=== PATIENT | female | born 1940 | race Caucasian/White ===

== ENCOUNTER 2020-11-18 05:10 | Inpatient (IN) ==
[2020-11-18] MEDS ORDERED: HYDROmorphone 2 MG/1 ML VIAL IV STA (05:28)
[2020-11-18] MEDS ORDERED: ONDANSETRON 4 MG/2 ML VIAL IV STA (05:28)
[2020-11-18 05:47] LABS: Basophils # 0.1 10*3/uL (0.0-0.2); Basophils % 0.3 % (0.0-0.8); Eosinophils # 0.4 10*3/uL (0.0-0.87); Eosinophils % 2.3 % (0.00-10.9); Hematocrit 33.2 VOL% (35.7-47.0); Immature Granulocytes % 0.8 %; Immature Granulocytes Absolute 0.15 #; Lymphocytes # 2.1 10*3/uL (1.4-4.0); Lymphocytes % 11.6 % (21.3-54.2); Mean Corpuscular HGB Conc 33.1 GM/DL (32-36); Mean Corpuscular Volume 89.5 FL (87-102); Mean Platelet Volume 11.7 FL (9.6-12.0); Monocytes % 4.8 % (1.7-12.7); Neutrophils % 80.2 % (38.7-73.9); Platelet Count 208 T/CUMM (130-400); Red Blood Count 3.71 MC/CUMM (3.8-5.5); Red Cell Distribution Width 14.6 % (9.3-17.3); White Blood Count 17.7 T/CUMM (4-12)
[2020-11-18 06:04] LABS: Albumin 3.5 G/DL (3.4-5.0); Bilirubin,Total 0.5 MG/DL (0.20-1.00); Calcium 8.9 MG/DL (8.5-10.1); Osmolality,Calculated 290.1 MOS/KG (273-304); Potassium 4.1 MMOL/L (3.5-5.1); Total Protein 6.2 G/DL (6.4-8.2)
[2020-11-18 06:29] LABS: Bacteria,Urine Occasional /HPF (Few); Bilirubin,Urine Negative (Negative); Blood, Urine Negative (Negative); Glucose,Urine (UA) Negative (Negative); Ketones,Urine Negative (Negative); Mucus,Urine Occasional /LPF (Occasional); Nitrite,Urine Negative (Negative); Protein,Urine Negative; RBC,Urine 2 /HPF (0-4); Squamous Epithelial Cell,Urine Occasional /HPF (0-10); Urine Appearance CLEAR (Clear); Urine Color Yellow (Yellow); Urine Specific Gravity 1.012 (1.001-1.035); Urine Urobilinogen < 2.0 EU/DL (0.2-1.0)
[2020-11-18] MEDS ORDERED: GLUCAGON 1 MG VIAL IM PRN (07:38)
[2020-11-18] MEDS ORDERED: ACETAMINOPHEN 325 MG TABLET PO PRN (07:38)
[2020-11-18] MEDS ORDERED: DEXTROSE 50% 25 GM/50 ML VIAL IV PRN (07:38)
[2020-11-18] MEDS ORDERED: hydrALAZINE 20 MG/1 ML VIAL IV PRN (07:38)
[2020-11-18 07:47] LABS: PT Patient Result 10.8 SECS (10.5-12.0)
[2020-11-18] MEDS ORDERED: SIMVASTATIN 20 MG TABLET PO SCH (09:00)
[2020-11-18] MEDS ORDERED: LEVOTHYROXINE 50 MCG TABLET PO SCH (09:00)
[2020-11-18] MEDS: DOCUSATE SODIUM 100 MG CAPSULE PO SCH ×2 (11:28→21:09)
[2020-11-18] MEDS: METOPROLOL TARTRATE 50 MG TABLET PO SCH ×2 (11:28→21:09)
[2020-11-18] MEDS: GABAPENTIN 100 MG CAPSULE PO SCH ×2 (11:28→21:09)
[2020-11-18] MEDS: allopurinoL 300 MG TABLET PO SCH (11:29)
[2020-11-18] MEDS: PANTOPRAZOLE 40 MG TABLET PO SCH (11:29)
[2020-11-18] MEDS: SODIUM CHLORIDE 0.9% 1,000 ML IV SCH (14:34)
[2020-11-18] MEDS: LOSARTAN/HCTZ 50-12.5 MG TABLET PO SCH (14:34)
[2020-11-18] MEDS: MORPHINE 2 MG/1 ML SYRINGE IV PRN (16:27)
[2020-11-19 05:50] LABS: Basophils % 0.2 % (0.0-0.8); Eosinophils # 0.3 10*3/uL (0.0-0.87); Eosinophils % 3.6 % (0.00-10.9); Hematocrit 30.8 VOL% (35.7-47.0); Hemoglobin 9.9 GM/DL (12.0-16.0); Immature Granulocytes % 0.4 %; Immature Granulocytes Absolute 0.04 #; Lymphocytes # 2.3 10*3/uL (1.4-4.0); Lymphocytes % 24.4 % (21.3-54.2); Mean Corpuscular HGB Conc 32.1 GM/DL (32-36); Mean Corpuscular Volume 91.9 FL (87-102); Mean Platelet Volume 12.6 FL (9.6-12.0); Monocytes % 8.6 % (1.7-12.7); Neutrophils % 62.8 % (38.7-73.9); Platelet Count 180 T/CUMM (130-400); Red Blood Count 3.35 MC/CUMM (3.8-5.5); Red Cell Distribution Width 14.6 % (9.3-17.3); White Blood Count 9.5 T/CUMM (4-12)
[2020-11-19] MEDS: LEVOTHYROXINE 50 MCG TABLET PO SCH (06:01)
[2020-11-19] MEDS: SODIUM CHLORIDE 0.9% 1,000 ML IV SCH ×3 (06:09→17:00)
[2020-11-19 06:30] LABS: Calcium 8.8 MG/DL (8.5-10.1); Osmolality,Calculated 286.3 MOS/KG (273-304); Potassium 4.3 MMOL/L (3.5-5.1); Thyroid Stimulating Hormone 3.24 uIU/ml (0.358-3.74)
[2020-11-19] MEDS ORDERED: fentaNYL 100 MCG/2 ML VIAL ONE (07:46)
[2020-11-19] MEDS ORDERED: ONDANSETRON 4 MG/2 ML VIAL ONE ×2 (07:55→08:19)
[2020-11-19] MEDS ORDERED: propofoL 200 MG/20 ML VIAL IV ONE (07:56)
[2020-11-19] MEDS ORDERED: LIDOCAINE 2% 5 ML VIAL ONE (07:56)
[2020-11-19] MEDS ORDERED: SEVOFLURANE 1 UNIT/15 MINUTE INH ONE ×3 (07:57→08:49)
[2020-11-19] MEDS ORDERED: ACETAMINOPHEN INJ 1,000 MG/100 ML VIAL IV ONE (08:02)
[2020-11-19] MEDS ORDERED: METOCLOPRAMIDE 10 MG/2 ML VIAL ONE (08:16)
[2020-11-19] MEDS ORDERED: KETOROLAC 30 MG/1 ML VIAL ONE (08:48)
[2020-11-19] MEDS ORDERED: HYDROmorphone 2 MG/1 ML VIAL ONE (09:23)
[2020-11-19] MEDS: HYDROmorphone 2 MG/1 ML VIAL IV PRN ×2 (09:25→09:30)
[2020-11-19] MEDS: LOSARTAN/HCTZ 50-12.5 MG TABLET PO SCH (12:00)
[2020-11-19] MEDS: DOCUSATE SODIUM 100 MG CAPSULE PO SCH ×2 (12:00→22:12)
[2020-11-19] MEDS: METOPROLOL TARTRATE 50 MG TABLET PO SCH ×2 (12:01→20:45)
[2020-11-19] MEDS: GABAPENTIN 100 MG CAPSULE PO SCH ×2 (12:01→20:45)
[2020-11-19] MEDS: allopurinoL 300 MG TABLET PO SCH (12:01)
[2020-11-19] MEDS: PANTOPRAZOLE 40 MG TABLET PO SCH (12:01)
[2020-11-19] MEDS: MORPHINE 2 MG/1 ML SYRINGE IV PRN (15:24)
[2020-11-19] MEDS ORDERED: ceFAZolin 1,000 MG VIAL ONE (15:49)
[2020-11-19] MEDS: LACTULOSE 20 GM/30 ML UDCUP PO PRN (18:05)
[2020-11-19] MEDS: APIXABAN 2.5 MG TABLET PO SCH (20:46)
[2020-11-19] MEDS: SIMVASTATIN 20 MG TABLET PO SCH (20:46)
[2020-11-20] MEDS: LEVOTHYROXINE 50 MCG TABLET PO SCH (05:53)
[2020-11-20] MEDS: SODIUM CHLORIDE 0.9% 1,000 ML IV SCH (05:54)
[2020-11-20] MEDS: ONDANSETRON 4 MG/2 ML VIAL IV PRN (08:45)
[2020-11-20] MEDS: PANTOPRAZOLE 40 MG TABLET PO SCH (09:32)
[2020-11-20] MEDS: APIXABAN 2.5 MG TABLET PO SCH ×2 (09:32→20:40)
[2020-11-20] MEDS: LOSARTAN/HCTZ 50-12.5 MG TABLET PO SCH (09:32)
[2020-11-20] MEDS: allopurinoL 300 MG TABLET PO SCH (09:33)
[2020-11-20] MEDS: GABAPENTIN 100 MG CAPSULE PO SCH ×2 (09:33→20:39)
[2020-11-20] MEDS: METOPROLOL TARTRATE 50 MG TABLET PO SCH ×2 (09:33→20:39)
[2020-11-20] MEDS: DOCUSATE SODIUM 100 MG CAPSULE PO SCH ×3 (09:34→22:49)
[2020-11-20] MEDS ORDERED: SIMETHICONE CHEW 125 MG TABLET PO PRN (11:13)
[2020-11-20] MEDS: SIMVASTATIN 20 MG TABLET PO SCH (20:40)
[2020-11-21 05:41] LABS: Basophils % 0.1 % (0.0-0.8); Eosinophils % 0.1 % (0.00-10.9); Hemoglobin 8.2 GM/DL (12.0-16.0); Immature Granulocytes % 0.9 %; Immature Granulocytes Absolute 0.16 #; Lymphocytes # 1.5 10*3/uL (1.4-4.0); Lymphocytes % 8.2 % (21.3-54.2); Mean Corpuscular HGB Conc 32.8 GM/DL (32-36); Mean Corpuscular Volume 90.3 FL (87-102); Monocytes % 5.6 % (1.7-12.7); Neutrophils % 85.1 % (38.7-73.9); Platelet Count 155 T/CUMM (130-400); Red Blood Count 2.77 MC/CUMM (3.8-5.5); Red Cell Distribution Width 14.5 % (9.3-17.3); White Blood Count 17.7 T/CUMM (4-12)
[2020-11-21] MEDS: LEVOTHYROXINE 50 MCG TABLET PO SCH (05:59)
[2020-11-21] MEDS: ONDANSETRON 4 MG/2 ML VIAL IV PRN ×2 (06:16→13:17)
[2020-11-21 06:20] LABS: Albumin 2.7 G/DL (3.4-5.0); Calcium 8.9 MG/DL (8.5-10.1); Potassium 3.6 MMOL/L (3.5-5.1); Total Protein 5.4 G/DL (6.4-8.2)
[2020-11-21] MEDS: SODIUM CHLORIDE 0.9% 1,000 ML IV SCH ×3 (09:56→21:20)
[2020-11-21] MEDS: APIXABAN 2.5 MG TABLET PO SCH ×2 (14:36→20:07)
[2020-11-21] MEDS: METOPROLOL TARTRATE 50 MG TABLET PO SCH ×2 (14:37→20:07)
[2020-11-21] MEDS: GABAPENTIN 100 MG CAPSULE PO SCH ×2 (14:37→20:07)
[2020-11-21] MEDS: PANTOPRAZOLE 40 MG TABLET PO SCH (14:48)
[2020-11-21] MEDS: LOSARTAN/HCTZ 50-12.5 MG TABLET PO SCH (14:48)
[2020-11-21] MEDS: LACTULOSE 20 GM/30 ML UDCUP PO PRN (14:48)
[2020-11-21] MEDS: allopurinoL 300 MG TABLET PO SCH (14:48)
[2020-11-21] MEDS: DOCUSATE SODIUM 100 MG CAPSULE PO SCH ×2 (14:48→20:07)
[2020-11-21] MEDS ORDERED: SODIUM PHOSPHATE ENEMA 133 ML BOTTLE RECTAL ONE (15:00)
[2020-11-21] MEDS: SIMVASTATIN 20 MG TABLET PO SCH (20:07)
[2020-11-22] MEDS: LEVOTHYROXINE 50 MCG TABLET PO SCH (06:09)
[2020-11-22] MEDS: LOSARTAN/HCTZ 50-12.5 MG TABLET PO SCH (08:41)
[2020-11-22] MEDS: METOPROLOL TARTRATE 50 MG TABLET PO SCH ×2 (08:41→20:34)
[2020-11-22] MEDS: APIXABAN 2.5 MG TABLET PO SCH ×2 (08:41→20:34)
[2020-11-22] MEDS: allopurinoL 300 MG TABLET PO SCH (09:54)
[2020-11-22] MEDS: DOCUSATE SODIUM 100 MG CAPSULE PO SCH ×2 (09:54→20:34)
[2020-11-22] MEDS: PANTOPRAZOLE 40 MG TABLET PO SCH (09:54)
[2020-11-22] MEDS: GABAPENTIN 100 MG CAPSULE PO SCH ×2 (09:54→20:35)
[2020-11-22 10:08] LABS: Basophils % 0.1 % (0.0-0.8); Hematocrit 26.1 VOL% (35.7-47.0); Hemoglobin 8.9 GM/DL (12.0-16.0); Immature Granulocytes % 1.2 %; Immature Granulocytes Absolute 0.24 #; Lymphocytes # 1.2 10*3/uL (1.4-4.0); Lymphocytes % 5.7 % (21.3-54.2); Mean Corpuscular HGB Conc 34.1 GM/DL (32-36); Mean Corpuscular Volume 88.2 FL (87-102); Mean Platelet Volume 11.8 FL (9.6-12.0); Monocytes % 4.5 % (1.7-12.7); NRBC # 0.02 10*3/uL; Neutrophils % 88.5 % (38.7-73.9); Platelet Count 225 T/CUMM (130-400); Red Blood Count 2.96 MC/CUMM (3.8-5.5); Red Cell Distribution Width 14.7 % (9.3-17.3); White Blood Count 20.6 T/CUMM (4-12)
[2020-11-22 10:28] LABS: Band Neutrophils 3 % (0-10); Hypochromasia Slight; Lymphocytes 4 % (20-55); Microcytosis 1+; Segmented Neutrophils 90 % (50-85); Total Cells Counted 100
[2020-11-22 10:29] LABS: Platelet Estimate Normal
[2020-11-22 10:30] LABS: Albumin 2.6 G/DL (3.4-5.0); Bilirubin,Total 0.4 MG/DL (0.20-1.00); Calcium 8.8 MG/DL (8.5-10.1); Osmolality,Calculated 305.3 MOS/KG (273-304); Potassium 2.7 MMOL/L (3.5-5.1); Total Protein 5.8 G/DL (6.4-8.2)
[2020-11-22] MEDS: SODIUM CHLORIDE 0.9% 1,000 ML IV SCH ×2 (11:05→14:03)
[2020-11-22] MEDS: SODIUM CHLORIDE 0.45% 1,000 ML IV SCH ×3 (14:03→14:29)
[2020-11-22] MEDS: POTASSIUM CHLORIDE RIDER 10 MEQ/100 ML PREMIX IV PRN ×5 (14:04→21:58)
[2020-11-22] MEDS: ONDANSETRON 4 MG/2 ML VIAL IV PRN (14:14)
[2020-11-22] MEDS: SIMVASTATIN 20 MG TABLET PO SCH (20:35)
[2020-11-23] MEDS: SODIUM CHLORIDE 0.45% 1,000 ML IV SCH ×3 (01:21→21:56)
[2020-11-23] MEDS: POTASSIUM CHLORIDE RIDER 10 MEQ/100 ML PREMIX IV PRN ×9 (04:09→18:22)
[2020-11-23 05:58] LABS: Basophils % 0.1 % (0.0-0.8); Eosinophils # 0.2 10*3/uL (0.0-0.87); Eosinophils % 1.4 % (0.00-10.9); Hematocrit 24.2 VOL% (35.7-47.0); Immature Granulocytes % 0.5 %; Immature Granulocytes Absolute 0.08 #; Lymphocytes # 1.5 10*3/uL (1.4-4.0); Lymphocytes % 9.9 % (21.3-54.2); Mean Corpuscular HGB Conc 33.1 GM/DL (32-36); Mean Platelet Volume 11.9 FL (9.6-12.0); Monocytes % 5.8 % (1.7-12.7); Neutrophils % 82.3 % (38.7-73.9); Platelet Count 226 T/CUMM (130-400); Red Blood Count 2.69 MC/CUMM (3.8-5.5); Red Cell Distribution Width 14.7 % (9.3-17.3); White Blood Count 14.9 T/CUMM (4-12)
[2020-11-23 06:26] LABS: Albumin 2.4 G/DL (3.4-5.0); Bilirubin,Total 0.7 MG/DL (0.20-1.00); Calcium 8.7 MG/DL (8.5-10.1); Osmolality,Calculated 296.8 MOS/KG (273-304); Potassium 2.8 MMOL/L (3.5-5.1)
[2020-11-23] MEDS: LEVOTHYROXINE 50 MCG TABLET PO SCH ×2 (06:49→09:45)
[2020-11-23] MEDS: METOPROLOL TARTRATE 50 MG TABLET PO SCH ×2 (09:45→21:09)
[2020-11-23] MEDS: DOCUSATE SODIUM 100 MG CAPSULE PO SCH ×2 (09:45→21:09)
[2020-11-23] MEDS: LOSARTAN/HCTZ 50-12.5 MG TABLET PO SCH (09:45)
[2020-11-23] MEDS: APIXABAN 2.5 MG TABLET PO SCH ×2 (09:45→21:08)
[2020-11-23] MEDS: allopurinoL 300 MG TABLET PO SCH (10:15)
[2020-11-23] MEDS: PANTOPRAZOLE 40 MG TABLET PO SCH (10:15)
[2020-11-23] MEDS: GABAPENTIN 100 MG CAPSULE PO SCH ×2 (10:15→21:09)
[2020-11-23] MEDS: SIMVASTATIN 20 MG TABLET PO SCH (21:09)
[2020-11-24] MEDS ORDERED: ALBUTEROL/IPRATROPIUM 3 ML NEB RESP TX PRN (01:12)
[2020-11-24] MEDS ORDERED: FUROSEMIDE 20 MG/2 ML VIAL IV ONE (01:49)
[2020-11-24 05:34] LABS: Basophils % 0.1 % (0.0-0.8); Eosinophils # 0.1 10*3/uL (0.0-0.87); Eosinophils % 0.8 % (0.00-10.9); Hematocrit 24.9 VOL% (35.7-47.0); Hemoglobin 8.4 GM/DL (12.0-16.0); Immature Granulocytes % 0.9 %; Immature Granulocytes Absolute 0.13 #; Lymphocytes # 1.2 10*3/uL (1.4-4.0); Lymphocytes % 8.3 % (21.3-54.2); Mean Corpuscular HGB Conc 33.7 GM/DL (32-36); Mean Corpuscular Volume 88.9 FL (87-102); Mean Platelet Volume 11.1 FL (9.6-12.0); Monocytes % 7.2 % (1.7-12.7); Neutrophils % 82.7 % (38.7-73.9); Platelet Count 238 T/CUMM (130-400); Red Cell Distribution Width 14.8 % (9.3-17.3); White Blood Count 14.3 T/CUMM (4-12)
[2020-11-24 05:56] LABS: Albumin 2.5 G/DL (3.4-5.0); Bilirubin,Total 0.7 MG/DL (0.20-1.00); Calcium 8.9 MG/DL (8.5-10.1); Osmolality,Calculated 287.4 MOS/KG (273-304); Potassium 3.2 MMOL/L (3.5-5.1); Total Protein 5.4 G/DL (6.4-8.2)
[2020-11-24] MEDS: LEVOTHYROXINE 50 MCG TABLET PO SCH (06:53)
[2020-11-24] MEDS: SODIUM CHLORIDE 0.45% 1,000 ML IV SCH (07:15)
[2020-11-24] MEDS: LOSARTAN/HCTZ 50-12.5 MG TABLET PO SCH (08:49)
[2020-11-24] MEDS: METOPROLOL TARTRATE 50 MG TABLET PO SCH ×2 (08:49→21:03)
[2020-11-24] MEDS: DOCUSATE SODIUM 100 MG CAPSULE PO SCH ×2 (08:49→21:03)
[2020-11-24] MEDS: PANTOPRAZOLE 40 MG TABLET PO SCH (08:49)
[2020-11-24] MEDS: allopurinoL 300 MG TABLET PO SCH (08:49)
[2020-11-24] MEDS: APIXABAN 2.5 MG TABLET PO SCH ×2 (08:49→21:03)
[2020-11-24] MEDS: GABAPENTIN 100 MG CAPSULE PO SCH ×2 (08:49→21:03)
[2020-11-24] MEDS ORDERED: POTASSIUM CHLORIDE 20 MEQ TABLET PO ONE ×2 (11:56→15:00)
[2020-11-24] MEDS: FUROSEMIDE 20 MG/2 ML VIAL IV ONE ×2 (12:05→13:06)
[2020-11-24] MEDS: SIMVASTATIN 20 MG TABLET PO SCH (21:03)
[2020-11-25 05:21] LABS: Basophils % 0.1 % (0.0-0.8); Eosinophils # 0.1 10*3/uL (0.0-0.87); Eosinophils % 0.8 % (0.00-10.9); Hematocrit 22.8 VOL% (35.7-47.0); Hemoglobin 7.6 GM/DL (12.0-16.0); Immature Granulocytes % 0.8 %; Immature Granulocytes Absolute 0.12 #; Lymphocytes # 1.5 10*3/uL (1.4-4.0); Lymphocytes % 9.5 % (21.3-54.2); Mean Corpuscular HGB Conc 33.3 GM/DL (32-36); Mean Corpuscular Volume 89.8 FL (87-102); Mean Platelet Volume 10.9 FL (9.6-12.0); Monocytes % 6.9 % (1.7-12.7); Neutrophils % 81.9 % (38.7-73.9); Platelet Count 231 T/CUMM (130-400); Red Blood Count 2.54 MC/CUMM (3.8-5.5); Red Cell Distribution Width 14.6 % (9.3-17.3); White Blood Count 15.8 T/CUMM (4-12)
[2020-11-25] MEDS: LEVOTHYROXINE 50 MCG TABLET PO SCH (05:37)
[2020-11-25 05:45] LABS: Calcium 8.6 MG/DL (8.5-10.1); Osmolality,Calculated 291.1 MOS/KG (273-304); Potassium 3.2 MMOL/L (3.5-5.1)
[2020-11-25] MEDS: DOCUSATE SODIUM 100 MG/10 ML UDCUP PO SCH ×2 (09:43→20:11)
[2020-11-25] MEDS: GABAPENTIN 100 MG CAPSULE PO SCH ×2 (09:44→20:12)
[2020-11-25] MEDS: LOSARTAN/HCTZ 50-12.5 MG TABLET PO SCH (09:44)
[2020-11-25] MEDS: PANTOPRAZOLE 40 MG TABLET PO SCH (09:44)
[2020-11-25] MEDS: APIXABAN 2.5 MG TABLET PO SCH ×2 (09:44→20:12)
[2020-11-25] MEDS: METOPROLOL TARTRATE 50 MG TABLET PO SCH ×2 (09:44→20:12)
[2020-11-25] MEDS: allopurinoL 300 MG TABLET PO SCH (09:45)
[2020-11-25] MEDS: POTASSIUM CHLORIDE RIDER 10 MEQ/100 ML PREMIX IV PRN ×4 (18:33→23:58)
[2020-11-25] MEDS: SIMVASTATIN 20 MG TABLET PO SCH (20:11)
[2020-11-26 05:07] LABS: Basophils % 0.1 % (0.0-0.8); Eosinophils # 0.2 10*3/uL (0.0-0.87); Eosinophils % 1.5 % (0.00-10.9); Hematocrit 24.1 VOL% (35.7-47.0); Hemoglobin 7.8 GM/DL (12.0-16.0); Immature Granulocytes % 0.5 %; Immature Granulocytes Absolute 0.08 #; Lymphocytes # 1.4 10*3/uL (1.4-4.0); Lymphocytes % 8.8 % (21.3-54.2); Mean Corpuscular HGB Conc 32.4 GM/DL (32-36); Mean Corpuscular Volume 89.9 FL (87-102); Mean Platelet Volume 11.6 FL (9.6-12.0); Monocytes % 5.8 % (1.7-12.7); Neutrophils % 83.3 % (38.7-73.9); Platelet Count 314 T/CUMM (130-400); Red Blood Count 2.68 MC/CUMM (3.8-5.5); Red Cell Distribution Width 14.9 % (9.3-17.3); White Blood Count 15.6 T/CUMM (4-12)
[2020-11-26 05:09] LABS: Basophils % 0.1 % (0.0-0.8); Eosinophils # 0.2 10*3/uL (0.0-0.87); Eosinophils % 1.5 % (0.00-10.9); Hematocrit 24.4 VOL% (35.7-47.0); Immature Granulocytes % 0.6 %; Lymphocytes # 1.3 10*3/uL (1.4-4.0); Lymphocytes % 8.5 % (21.3-54.2); Mean Corpuscular HGB Conc 32.8 GM/DL (32-36); Mean Corpuscular Volume 89.7 FL (87-102); Mean Platelet Volume 11.5 FL (9.6-12.0); Monocytes % 6.2 % (1.7-12.7); Neutrophils % 83.1 % (38.7-73.9); Platelet Count 306 T/CUMM (130-400); Red Blood Count 2.72 MC/CUMM (3.8-5.5); Red Cell Distribution Width 14.9 % (9.3-17.3); White Blood Count 15.8 T/CUMM (4-12)
[2020-11-26 05:33] LABS: Calcium 9.1 MG/DL (8.5-10.1); Osmolality,Calculated 291.1 MOS/KG (273-304); Potassium 3.2 MMOL/L (3.5-5.1)
[2020-11-26 05:40] LABS: Folate 11.53 NG/ML (5.38-24.0); Vitamin B12 319 PG/ML (211-911)
[2020-11-26] MEDS: LEVOTHYROXINE 50 MCG TABLET PO SCH (06:05)
[2020-11-26 06:08] LABS: Sedimentation Rate-Westergren 101 MM/HR (0-30)
[2020-11-26 06:09] LABS: % Iron Saturation 10.8 % (18-50); Ferritin 407.4 ng/ml (8-252)
[2020-11-26] MEDS: POTASSIUM CHLORIDE RIDER 10 MEQ/100 ML PREMIX IV PRN (06:30)
[2020-11-26] MEDS: PANTOPRAZOLE 40 MG TABLET PO SCH (09:52)
[2020-11-26] MEDS: GABAPENTIN 100 MG CAPSULE PO SCH ×2 (09:52→21:17)
[2020-11-26] MEDS: METOPROLOL TARTRATE 50 MG TABLET PO SCH ×2 (09:53→21:17)
[2020-11-26] MEDS: APIXABAN 2.5 MG TABLET PO SCH ×2 (09:53→21:17)
[2020-11-26] MEDS: LOSARTAN/HCTZ 50-12.5 MG TABLET PO SCH (09:53)
[2020-11-26] MEDS: DOCUSATE SODIUM 100 MG/10 ML UDCUP PO SCH ×2 (09:54→21:17)
[2020-11-26] MEDS: allopurinoL 300 MG TABLET PO SCH (11:31)
[2020-11-26] MEDS: FERROUS SULFATE 300 MG/5 ML UDCUP PO SCH ×2 (11:31→21:17)
[2020-11-26] MEDS: ONDANSETRON 4 MG/2 ML VIAL IV PRN (11:39)
[2020-11-26] MEDS: SIMVASTATIN 20 MG TABLET PO SCH (21:17)
[2020-11-27] MEDS: POTASSIUM CHLORIDE 20 MEQ TABLET PO PRN ×3 (05:29→10:19)
[2020-11-27] MEDS: LEVOTHYROXINE 50 MCG TABLET PO SCH (05:31)
[2020-11-27 09:33] LABS: Basophils # 0.1 10*3/uL (0.0-0.2); Basophils % 0.3 % (0.0-0.8); Eosinophils # 0.4 10*3/uL (0.0-0.87); Eosinophils % 2.1 % (0.00-10.9); Hematocrit 29.2 VOL% (35.7-47.0); Hemoglobin 9.4 GM/DL (12.0-16.0); Immature Granulocytes % 0.8 %; Immature Granulocytes Absolute 0.14 #; Lymphocytes # 3.5 10*3/uL (1.4-4.0); Lymphocytes % 20.7 % (21.3-54.2); Mean Corpuscular HGB Conc 32.2 GM/DL (32-36); Mean Corpuscular Volume 90.7 FL (87-102); Mean Platelet Volume 11.3 FL (9.6-12.0); Neutrophils % 69.1 % (38.7-73.9); Platelet Count 412 T/CUMM (130-400); Red Blood Count 3.22 MC/CUMM (3.8-5.5); White Blood Count 16.7 T/CUMM (4-12)
[2020-11-27 09:55] LABS: Calcium 9.2 MG/DL (8.5-10.1); Osmolality,Calculated 290.3 MOS/KG (273-304); Potassium 3.1 MMOL/L (3.5-5.1)
[2020-11-27] MEDS: allopurinoL 300 MG TABLET PO SCH (10:18)
[2020-11-27] MEDS: METOPROLOL TARTRATE 50 MG TABLET PO SCH ×2 (10:18→22:10)
[2020-11-27] MEDS: GABAPENTIN 100 MG CAPSULE PO SCH ×2 (10:20→22:09)
[2020-11-27] MEDS: APIXABAN 2.5 MG TABLET PO SCH ×2 (10:20→22:10)
[2020-11-27] MEDS: PANTOPRAZOLE 40 MG TABLET PO SCH (10:20)
[2020-11-27] MEDS: LOSARTAN/HCTZ 50-12.5 MG TABLET PO SCH (10:20)
[2020-11-27] MEDS: FERROUS SULFATE 300 MG/5 ML UDCUP PO SCH (10:23)
[2020-11-27] MEDS: DOCUSATE SODIUM 100 MG/10 ML UDCUP PO SCH (10:23)
[2020-11-27] MEDS ORDERED: BISACODYL 5 MG TABLET PO SCH (11:30)
[2020-11-27] MEDS: FERROUS SULFATE 325 MG TABLET PO SCH ×2 (12:20→22:10)
[2020-11-27] MEDS: DOCUSATE SODIUM 100 MG CAPSULE PO SCH (12:20)
[2020-11-27] MEDS ORDERED: POTASSIUM BICARB EFFERVESCENT 20 MEQ TAB.EFF PO ONE (13:54)
[2020-11-27] MEDS: SIMVASTATIN 20 MG TABLET PO SCH (22:10)
[2020-11-28 05:09] LABS: Basophils % 0.4 % (0.0-0.8); Eosinophils # 0.3 10*3/uL (0.0-0.87); Eosinophils % 3.2 % (0.00-10.9); Hemoglobin 7.8 GM/DL (12.0-16.0); Immature Granulocytes % 0.8 %; Immature Granulocytes Absolute 0.08 #; Lymphocytes # 1.8 10*3/uL (1.4-4.0); Lymphocytes % 18.6 % (21.3-54.2); Mean Corpuscular HGB Conc 32.5 GM/DL (32-36); Mean Corpuscular Volume 90.6 FL (87-102); Mean Platelet Volume 11.5 FL (9.6-12.0); Monocytes % 8.7 % (1.7-12.7); Neutrophils % 68.3 % (38.7-73.9); Platelet Count 308 T/CUMM (130-400); Red Blood Count 2.65 MC/CUMM (3.8-5.5); Red Cell Distribution Width 14.8 % (9.3-17.3); White Blood Count 9.7 T/CUMM (4-12)
[2020-11-28 05:33] LABS: Anisocytosis 2+; Band Neutrophils 10 % (0-10); Eosinophils 2 % (0-10); Lymphocytes 15 % (20-55); Macrocytosis Slight; Platelet Estimate Normal; Segmented Neutrophils 68 % (50-85); Tear Drop Cells Few; Total Cells Counted 100
[2020-11-28 05:40] LABS: Calcium 8.8 MG/DL (8.5-10.1); Osmolality,Calculated 295.7 MOS/KG (273-304); Potassium 3.6 MMOL/L (3.5-5.1)
[2020-11-28] MEDS: LEVOTHYROXINE 50 MCG TABLET PO SCH (05:41)
[2020-11-28 09:39] LABS: Hemoglobin A1 (Alkaline) 96.6 % (96.5-98.5); Hemoglobin A2 (Alkaline) 3.4 % (1.5-3.5)
[2020-11-28] MEDS: DOCUSATE SODIUM 100 MG CAPSULE PO SCH (09:49)
[2020-11-28] MEDS: FERROUS SULFATE 325 MG TABLET PO SCH ×2 (09:49→20:55)
[2020-11-28] MEDS: allopurinoL 300 MG TABLET PO SCH (09:49)
[2020-11-28] MEDS: GABAPENTIN 100 MG CAPSULE PO SCH ×2 (09:50→20:54)
[2020-11-28] MEDS: APIXABAN 2.5 MG TABLET PO SCH ×2 (09:50→20:54)
[2020-11-28] MEDS: PANTOPRAZOLE 40 MG TABLET PO SCH (09:50)
[2020-11-28] MEDS: LOSARTAN/HCTZ 50-12.5 MG TABLET PO SCH (09:50)
[2020-11-28] MEDS: METOPROLOL TARTRATE 50 MG TABLET PO SCH ×2 (09:50→20:55)
[2020-11-28] MEDS: POTASSIUM CHLORIDE 20 MEQ TABLET PO PRN (17:33)
[2020-11-28] MEDS: SIMVASTATIN 20 MG TABLET PO SCH (20:54)
[2020-11-29 05:08] LABS: Basophils % 0.4 % (0.0-0.8); Eosinophils # 0.4 10*3/uL (0.0-0.87); Eosinophils % 4.1 % (0.00-10.9); Hematocrit 24.9 VOL% (35.7-47.0); Hemoglobin 8.1 GM/DL (12.0-16.0); Immature Granulocytes % 0.9 %; Immature Granulocytes Absolute 0.08 #; Lymphocytes # 1.9 10*3/uL (1.4-4.0); Lymphocytes % 20.9 % (21.3-54.2); Mean Corpuscular HGB Conc 32.5 GM/DL (32-36); Mean Corpuscular Volume 90.5 FL (87-102); Mean Platelet Volume 11.4 FL (9.6-12.0); Monocytes % 8.3 % (1.7-12.7); Neutrophils % 65.4 % (38.7-73.9); Platelet Count 310 T/CUMM (130-400); Red Blood Count 2.75 MC/CUMM (3.8-5.5); Red Cell Distribution Width 14.8 % (9.3-17.3); White Blood Count 9.3 T/CUMM (4-12)
[2020-11-29 05:33] LABS: Calcium 8.6 MG/DL (8.5-10.1); Potassium 3.8 MMOL/L (3.5-5.1)
[2020-11-29] MEDS: LEVOTHYROXINE 50 MCG TABLET PO SCH (06:31)
[2020-11-29] MEDS: POTASSIUM CHLORIDE 20 MEQ TABLET PO PRN (06:31)
[2020-11-29] MEDS: allopurinoL 300 MG TABLET PO SCH (08:35)
[2020-11-29] MEDS: DOCUSATE SODIUM 100 MG CAPSULE PO SCH (08:35)
[2020-11-29] MEDS: FERROUS SULFATE 325 MG TABLET PO SCH ×2 (08:35→20:18)
[2020-11-29] MEDS: PANTOPRAZOLE 40 MG TABLET PO SCH (08:35)
[2020-11-29] MEDS: LOSARTAN/HCTZ 50-12.5 MG TABLET PO SCH (08:35)
[2020-11-29] MEDS: METOPROLOL TARTRATE 50 MG TABLET PO SCH ×2 (08:35→20:18)
[2020-11-29] MEDS: GABAPENTIN 100 MG CAPSULE PO SCH ×2 (08:35→20:19)
[2020-11-29] MEDS: APIXABAN 2.5 MG TABLET PO SCH ×2 (08:37→20:18)
[2020-11-29] MEDS: SIMVASTATIN 20 MG TABLET PO SCH (20:19)
[2020-11-29 21:57] VITALS: BP 120/48
== END 2020-11-29 22:05 | DRG 481 ==
LOC: EDBD → EDUNIT# → N.ED 05:10 → SUATTDRO 07:38 → N.EDINP 07:38 → N.3E 13:25
PROVIDERS: ADMIT Internal Medicine; ATTEND Internal Medicine

== ENCOUNTER 2022-01-28 13:03 | Inpatient (IN) ==
[2022-01-28] MEDS ORDERED: MORPHINE 2 MG/1 ML SYRINGE IV STA (13:59)
[2022-01-28] MEDS ORDERED: ONDANSETRON 4 MG/2 ML VIAL IV STA (13:59)
[2022-01-28 14:26] LABS: Basophils % 0.2 % (0.0-0.8); Eosinophils # 0.2 10*3/uL (0.0-0.87); Eosinophils % 1.3 % (0.00-10.9); Hematocrit 33.6 VOL% (35.7-47.0); Hemoglobin 10.9 GM/DL (12.0-16.0); Immature Granulocytes % 0.7 %; Immature Granulocytes Absolute 0.12 #; Lymphocytes # 1.8 10*3/uL (1.4-4.0); Lymphocytes % 10.7 % (21.3-54.2); Mean Corpuscular HGB Conc 32.4 GM/DL (32-36); Mean Corpuscular Volume 90.6 FL (87-102); Mean Platelet Volume 11.8 FL (9.6-12.0); Monocytes # 0.7 10*3/uL (0.11-0.8); Monocytes % 3.9 % (1.7-12.7); Neutrophils % 83.2 % (38.7-73.9); Platelet Count 204 T/CUMM (130-400); Red Blood Count 3.71 MC/CUMM (3.8-5.5); White Blood Count 17.1 T/CUMM (4-12)
[2022-01-28 14:38] LABS: INR 0.9; PT Patient Result 10.5 SECS (10.1-12.1); Partial Thromboplastin Time 27.8 SECS (23.7-32.9)
[2022-01-28 14:53] LABS: Albumin 3.5 G/DL (3.4-5.0); Bilirubin,Total 0.4 MG/DL (0.20-1.00); Calcium 9.3 MG/DL (8.5-10.1); Osmolality,Calculated 289.3 MOS/KG (273-304); Potassium 4.1 MMOL/L (3.5-5.1); Total Protein 6.5 G/DL (6.4-8.2)
[2022-01-28] MEDS ORDERED: GLUCAGON 1 MG VIAL IM PRN (14:58)
[2022-01-28] MEDS ORDERED: ONDANSETRON 4 MG/2 ML VIAL IV PRN (14:58)
[2022-01-28] MEDS ORDERED: DEXTROSE 10% 250 ML BAG IV PRN (14:58)
[2022-01-28] MEDS: DEXTROSE 5% NACL 0.9% 1,000 ML IV SCH (15:23)
[2022-01-28] MEDS: MORPHINE 2 MG/1 ML SYRINGE IV PRN (19:19)
[2022-01-28] MEDS ORDERED: HEPARIN 5,000 UNIT/1 ML VIAL SUBCUT SCH (21:00)
[2022-01-28] MEDS: PANTOPRAZOLE 40 MG TABLET PO SCH (21:51)
[2022-01-28] MEDS: METOPROLOL TARTRATE 50 MG TABLET PO SCH (21:51)
[2022-01-28] MEDS: SIMVASTATIN 20 MG TABLET PO SCH (21:51)
[2022-01-28] MEDS: GABAPENTIN 100 MG CAPSULE PO SCH (22:11)
[2022-01-28] MEDS: cilostazoL 100 MG TABLET PO SCH (22:11)
[2022-01-29] MEDS: MORPHINE 2 MG/1 ML SYRINGE IV PRN ×2 (00:32→06:40)
[2022-01-29 05:43] LABS: Basophils % 0.3 % (0.0-0.8); Eosinophils # 0.2 10*3/uL (0.0-0.87); Eosinophils % 1.9 % (0.00-10.9); Hematocrit 29.5 VOL% (35.7-47.0); Hemoglobin 9.5 GM/DL (12.0-16.0); Immature Granulocytes % 0.4 %; Immature Granulocytes Absolute 0.04 #; Lymphocytes # 2.2 10*3/uL (1.4-4.0); Lymphocytes % 21.9 % (21.3-54.2); Mean Corpuscular HGB Conc 32.2 GM/DL (32-36); Mean Platelet Volume 11.5 FL (9.6-12.0); Monocytes # 0.8 10*3/uL (0.11-0.8); Monocytes % 8.5 % (1.7-12.7); Platelet Count 153 T/CUMM (130-400); Red Blood Count 3.24 MC/CUMM (3.8-5.5); Red Cell Distribution Width 14.9 % (9.3-17.3); White Blood Count 9.9 T/CUMM (4-12)
[2022-01-29 06:00] LABS: Calcium 8.9 MG/DL (8.5-10.1); Osmolality,Calculated 290.1 MOS/KG (273-304); Potassium 4.1 MMOL/L (3.5-5.1)
[2022-01-29] MEDS: DEXTROSE 5% NACL 0.9% 1,000 ML IV SCH (06:09)
[2022-01-29] MEDS: LEVOTHYROXINE 50 MCG TABLET PO SCH (06:10)
[2022-01-29] MEDS: DICYCLOMINE 10 MG CAPSULE PO SCH (09:07)
[2022-01-29] MEDS: GABAPENTIN 100 MG CAPSULE PO SCH ×2 (09:07→21:36)
[2022-01-29] MEDS: cilostazoL 100 MG TABLET PO SCH ×2 (09:07→21:35)
[2022-01-29] MEDS: allopurinoL 300 MG TABLET PO SCH (09:07)
[2022-01-29] MEDS: LOSARTAN/HCTZ 50-12.5 MG TABLET PO SCH (09:28)
[2022-01-29] MEDS: METOPROLOL TARTRATE 50 MG TABLET PO SCH ×2 (09:28→21:35)
[2022-01-29] MEDS ORDERED: fentaNYL 100 MCG/2 ML VIAL ONE ×2 (12:30→12:39)
[2022-01-29] MEDS ORDERED: ONDANSETRON 4 MG/2 ML VIAL ONE ×2 (12:30→12:39)
[2022-01-29] MEDS ORDERED: MIDAZOLAM 2 MG/2 ML VIAL ONE (12:30)
[2022-01-29] MEDS ORDERED: DEXAMETHASONE 4 MG/1 ML VIAL ONE (12:30)
[2022-01-29] MEDS ORDERED: ROPIVACAINE 0.5% 30 ML VIAL ONE (12:31)
[2022-01-29] MEDS ORDERED: LIDOCAINE 1% 5 ML VIAL ONE (12:31)
[2022-01-29] MEDS ORDERED: DEXMEDETOMIDINE 200 MCG/2 ML VIAL ONE (12:39)
[2022-01-29] MEDS ORDERED: BUPIVACAINE MPF 0.5% 30 ML VIAL ONE (13:07)
[2022-01-29] MEDS ORDERED: buprenorphine HCL 0.3 MG/ML VIAL ONE (13:08)
[2022-01-29] MEDS ORDERED: PHENYLEPHRINE 1 MG/10 ML SYRINGE IV ONE ×2 (13:32→13:58)
[2022-01-29] MEDS ORDERED: ePHEDrine 50 MG/ML VIAL ONE (13:57)
[2022-01-29] MEDS ORDERED: propofoL 200 MG/20 ML VIAL IV ONE (14:03)
[2022-01-29] MEDS ORDERED: ETOMIDATE 40 MG/20 ML VIAL IV ONE (14:03)
[2022-01-29] MEDS ORDERED: TRANEXAMIC ACID 1,000 MG/10 ML VIAL ONE (14:04)
[2022-01-29] MEDS ORDERED: LACTATED RINGERS 1,000 ML IV ONE (14:07)
[2022-01-29] MEDS ORDERED: BACITRACIN OINT 0.9 GM PACK TOP ONE (14:17)
[2022-01-29] MEDS ORDERED: MAGNESIUM HYDROXIDE SUSP 30 ML UDCUP PO PRN (14:30)
[2022-01-29] MEDS ORDERED: MORPHINE 2 MG/1 ML SYRINGE IV PRN ×2 (14:31)
[2022-01-29] MEDS ORDERED: KETOROLAC 15 MG/1 ML VIAL IV SCH (15:00)
[2022-01-29] MEDS: LACTATED RINGERS 1,000 ML IV SCH (17:21)
[2022-01-29] MEDS: SIMVASTATIN 20 MG TABLET PO SCH (21:36)
[2022-01-29] MEDS: DOCUSATE SODIUM 100 MG CAPSULE PO SCH (21:36)
[2022-01-29] MEDS: PANTOPRAZOLE 40 MG TABLET PO SCH (21:36)
[2022-01-30] MEDS: LACTATED RINGERS 1,000 ML IV SCH ×3 (00:25→16:11)
[2022-01-30 05:08] LABS: Basophils % 0.1 % (0.0-0.8); Hematocrit 29.4 VOL% (35.7-47.0); Hemoglobin 9.5 GM/DL (12.0-16.0); Immature Granulocytes % 0.5 %; Immature Granulocytes Absolute 0.07 #; Lymphocytes # 1.1 10*3/uL (1.4-4.0); Lymphocytes % 7.9 % (21.3-54.2); Mean Corpuscular HGB Conc 32.3 GM/DL (32-36); Mean Platelet Volume 12.5 FL (9.6-12.0); Monocytes # 0.7 10*3/uL (0.11-0.8); Monocytes % 5.2 % (1.7-12.7); Neutrophils % 86.3 % (38.7-73.9); Platelet Count 161 T/CUMM (130-400); Red Blood Count 3.23 MC/CUMM (3.8-5.5); Red Cell Distribution Width 14.6 % (9.3-17.3); White Blood Count 13.3 T/CUMM (4-12)
[2022-01-30 05:29] LABS: Osmolality,Calculated 289.3 MOS/KG (273-304); Potassium 4.2 MMOL/L (3.5-5.1)
[2022-01-30 05:40] LABS: Calcium 8.7 MG/DL (8.5-10.1); Osmolality,Calculated 290.1 MOS/KG (273-304); Potassium 4.3 MMOL/L (3.5-5.1); Thyroid Stimulating Hormone 0.951 uIU/ml (0.358-3.74)
[2022-01-30] MEDS: LEVOTHYROXINE 50 MCG TABLET PO SCH (06:34)
[2022-01-30] MEDS: GABAPENTIN 100 MG CAPSULE PO SCH ×2 (09:04→21:07)
[2022-01-30] MEDS: DICYCLOMINE 10 MG CAPSULE PO SCH (09:04)
[2022-01-30] MEDS: LOSARTAN/HCTZ 50-12.5 MG TABLET PO SCH (09:04)
[2022-01-30] MEDS: cilostazoL 100 MG TABLET PO SCH ×2 (09:05→21:07)
[2022-01-30] MEDS: FONDAPARINUX 2.5 MG/0.5 ML SYRINGE SUBCUT SCH (09:05)
[2022-01-30] MEDS: allopurinoL 300 MG TABLET PO SCH (09:05)
[2022-01-30] MEDS: METOPROLOL TARTRATE 50 MG TABLET PO SCH ×2 (09:05→21:06)
[2022-01-30] MEDS: DOCUSATE SODIUM 100 MG CAPSULE PO SCH ×2 (09:05→21:00)
[2022-01-30] MEDS: SIMVASTATIN 20 MG TABLET PO SCH (21:07)
[2022-01-30] MEDS: PANTOPRAZOLE 40 MG TABLET PO SCH (21:07)
[2022-01-31] MEDS: LACTATED RINGERS 1,000 ML IV SCH (04:15)
[2022-01-31 05:39] LABS: Basophils % 0.2 % (0.0-0.8); Eosinophils # 0.4 10*3/uL (0.0-0.87); Eosinophils % 2.8 % (0.00-10.9); Hematocrit 26.8 VOL% (35.7-47.0); Hemoglobin 8.6 GM/DL (12.0-16.0); Immature Granulocytes % 0.5 %; Immature Granulocytes Absolute 0.06 #; Lymphocytes # 2.2 10*3/uL (1.4-4.0); Lymphocytes % 16.9 % (21.3-54.2); Mean Corpuscular HGB Conc 32.1 GM/DL (32-36); Mean Corpuscular Volume 90.8 FL (87-102); Mean Platelet Volume 12.1 FL (9.6-12.0); Monocytes # 1.2 10*3/uL (0.11-0.8); Neutrophils % 70.6 % (38.7-73.9); Platelet Count 153 T/CUMM (130-400); Red Blood Count 2.95 MC/CUMM (3.8-5.5); Red Cell Distribution Width 14.5 % (9.3-17.3); White Blood Count 12.7 T/CUMM (4-12)
[2022-01-31] MEDS: LEVOTHYROXINE 50 MCG TABLET PO SCH (05:40)
[2022-01-31 06:07] LABS: Calcium 9.1 MG/DL (8.5-10.1); Osmolality,Calculated 288.1 MOS/KG (273-304); Potassium 3.5 MMOL/L (3.5-5.1)
[2022-01-31] MEDS: DOCUSATE SODIUM 100 MG CAPSULE PO SCH (08:04)
[2022-01-31] MEDS: DICYCLOMINE 10 MG CAPSULE PO SCH (08:04)
[2022-01-31] MEDS: LOSARTAN/HCTZ 50-12.5 MG TABLET PO SCH (09:39)
[2022-01-31] MEDS: METOPROLOL TARTRATE 50 MG TABLET PO SCH (09:47)
[2022-01-31] MEDS: GABAPENTIN 100 MG CAPSULE PO SCH (09:48)
[2022-01-31] MEDS: allopurinoL 300 MG TABLET PO SCH (09:49)
[2022-01-31] MEDS: cilostazoL 100 MG TABLET PO SCH (09:49)
[2022-01-31] MEDS: FONDAPARINUX 2.5 MG/0.5 ML SYRINGE SUBCUT SCH (09:53)
[2022-01-31 11:53] VITALS: BP 139/53
== END 2022-01-31 13:56 | DRG 481 ==
LOC: N.ED 13:03 → EDUNIT# 13:03 → EDBD 13:03 → SUATTDRO 14:58 → N.EDINP 14:58 → N.3E 16:29
PROVIDERS: ADMIT Internal Medicine; ATTEND Internal Medicine